=== PATIENT | female | born 1955 | race Two or more races ===

== ENCOUNTER 2017-03-23 11:28 | Emergency (ER) | payer OTHER ==
[~2017-03-23] VITALS: Ht 160 cm; Wt 59.0 kg
[2017-03-23] MEDS ORDERED: WELLBUTRIN XL150 M1 (11:36)
[2017-03-23] MEDS ORDERED: PROTONIX40 M1 (11:37)
== END 2017-03-23 22:31 | disposition home or self-care (01) ==
LOC: ER 11:28
DX: R55 Syncope and collapse (principal)